=== PATIENT | female | born 2000 | race African-American/Black ===

== ENCOUNTER 2022-09-13 09:48 | Emergency (ER) | payer OTHER ==
[~2022-09-13] VITALS: Ht 152.4 cm; Wt 52.2 kg
[2022-09-13 09:51] VITALS: TEMP 97.5
[2022-09-13 12:55] VITALS: BP 110/65
== END 2022-09-13 12:55 | disposition home or self-care (01) ==
LOC: ED 09:48
DX: S50.02XA Contusion of left elbow, initial encounter (principal); S80.02XA Contusion of left knee, initial encounter; W18.09XA Striking against other object with subsequent fall, initial encounter; Y92.89 Other specified places as the place of occurrence of the external cause
CPT/HCPCS: 81025; 99282